=== PATIENT | female | born 1960 | race Caucasian/White ===

== ENCOUNTER 2023-01-11 17:11 | Emergency (ER) | payer OTHER ==
[~2023-01-11] VITALS: Ht 165.1 cm; Wt 95.3 kg
[2023-01-11 17:25] VITALS: BP_SYST 156
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
--- NOTE | 2023-01-11 17:36 | NUR ---
DR. COHEN AT BEDSIDE TO ASSESS PT.
[2023-01-11] MEDS ORDERED: METOCLOPRAMIDE HCL 10 MG/2 ML VIAL IM ONE (17:45)
[2023-01-11] MEDS ORDERED: KETOROLAC TROMETHAMINE 30 MG VIAL IM ONE (17:45)
[2023-01-11] MEDS ORDERED: METOCLOPRAMIDE HCL 10 MG/2 ML VIAL ONE (17:56)
[2023-01-11 20:00] VITALS: BP_SYST 123
--- NOTE | 2023-01-11 20:01 | NUR ---
Report received from [facility] for continuity of care. Patient in stable condition. No active distress noted.
--- NOTE | 2023-01-11 20:07 | NUR ---
Dr. Currie at bedside to talk to patients about results.
--- NOTE | 2023-01-11 20:15 | NUR ---
Patient given written and verbal discharge instructions and verbalizes understanding. ER MD discussed with patient the results and treatment provided. Patient in stable condition. ID arm band removed. IV catheter removed intact and dressing applied, no active bleeding. Rx of meds given. Patient educated on pain management and to follow up with PMD. Pain Scale . Opportunity for questions provided and answered. Medication side effect fact sheet provided.
[2023-01-11] MEDS ORDERED: ONDA-8 TL (20:19)
[2023-01-11] MEDS ORDERED: ACET325T53 PO (20:19)
== END 2023-01-11 20:15 | disposition home or self-care (01) ==
LOC: SED 17:11
DX: S06.0X0A Concussion without loss of consciousness, initial encounter (principal); Z79.899 Other long term (current) drug therapy; V89.2XXA Person injured in unspecified motor-vehicle accident, traffic, initial encounter; Y93.89 Activity, other specified; Y92.89 Other specified places as the place of occurrence of the external cause; Y99.8 Other external cause status
CPT/HCPCS: 99285; 70450; 82962; 93005; 76376; 96372; J1885; J2765